=== PATIENT | female | born 1960 | race Caucasian/White ===

== ENCOUNTER 2018-10-03 20:28 | Emergency (ER) | payer OTHER ==
[~2018-10-03] VITALS: Ht 167.6 cm; Wt 71.2 kg
[2018-10-03] MEDS ORDERED: AVAPRO300 MG PO (21:16)
[2018-10-03] MEDS ORDERED: SYNTHROID100 MCG PO (21:17)
[2018-10-03] MEDS ORDERED: ALIGN4 MG PO (21:18)
[2018-10-03] MEDS ORDERED: ZYRTEC10 M3 PO (21:18)
== END 2018-10-03 21:37 | disposition home or self-care (01) ==
LOC: ER 20:28
DX: L90.5 Scar conditions and fibrosis of skin (principal)